=== PATIENT | male | born 1955 | race Caucasian/White ===

== ENCOUNTER → 2023-08-19 09:15 | Outpatient (REF) | payer OTHER, SELFPAY | LOC: WDC 09:15 | PROVIDERS: ATTENDING PHYSICIAN Specialist; FAMILY PHYSICIAN Family Medicine | DX: N64.4 Mastodynia (principal) | CPT/HCPCS: 76642; 77062; 77066 ==

== ENCOUNTER 2023-10-23 17:53 | Emergency (ER) | payer OTHER, SELFPAY ==
[2023-10-23 18:27] VITALS: BP 122/72
--- NOTE | 2023-10-23 18:43 | ED.GENMED ---
History of Present Illness
<Mariela Randall PA-C - Last Filed: 10/24/23 00:28>
General
Chief Complaint: Skin Surface Trauma
Source: patient
Exam Limitations: none
Time Seen by Provider: 10/23/23 18:43
Nursing documentation reviewed up to this point in time: agreed with
Travel History
Have you had any contact with someone who has COVID-19?: No
Do you have any symptoms of coronavirus? Fever > 100 degrees, chills, cough, shortness of breath, sore throat, loss of taste or smell, muscle aches, or headache?: No
History of Present Illness
History of Present Illness:
Patient is a 60-year-old male with history hypertension, hyperlipidemia, CVA presenting for evaluation of finger laceration. Patient states that he was cooking in the kitchen about an hour ago when a kitchen knife fell off the counter and he tried
to catch it with his right hand. The knife did slice his right fifth digit. Patient did attempt to stop bleeding at home with direct compression. Bleeding persisted so he came to the emergency department for further evaluation and management.
Patient denies any numbness or tingling in right finger or hand. Patient does take Plavix given stroke history.
Patient unsure when his last tetanus shot was.
Past History
<Mariela Randall PA-C - Last Filed: 10/24/23 00:28>
Past History
ED Past Medical History: CVA, HTN, Hypercholesterolemia and Other (Unbilical hernia)
ED Past Surgical History: Appendectomy and Urological (Prostate surgery)
Social History
Tobacco: Non-smoker
Alcohol: Occasional
Personal:
Living: with family
Review of Systems
<Mariela Randall PA-C - Last Filed: 10/24/23 00:28>
Review of Systems
Allergies reviewed?: Yes
All Other Systems: ROS reviewed and negative except as documented in HPI and ROS
Phy Exam
<Mariela Randall PA-C - Last Filed: 10/24/23 00:28>
Physical Exam
Physical Exam:
Vitals: Patient's vital signs are stable. Afebrile
General: Patient is well appearing, no acute distress
Skin: Approximately 2 cm V-shaped laceration of right fifth digit at medial aspect between PIP and DIP joint
Head: Normocephalic, atraumatic
Eyes: Sclera nonicteric. EOMs intact. No nystagmus.
Throat: Protecting airway
Neck: Normal ROM, no cervical spine tenderness, no meningismus
Cardiac: Regular rate and rhythm, no murmurs.
Pulm: Normal respiratory effort, no wheezes, rales, rhonchi heard on exam.
Abdomen: No abdominal tenderness.
Extremities: Approximately 2 cm linear laceration at medial aspect of fifth digit between PIP and DIP joint. No evidence of tendon involvement. Full strength against flexion and extension at PIP, DIP, MCP joint. Patient able to make a fist.
Strength 5 out of 5. Good distal pulses. Sensation fully intact
Neuro: AAOx3. CN II-XII intact. No focal neurologic deficits.
Psychiatric: Normal affect.
Course
<Mariela Randall PA-C - Last Filed: 10/24/23 00:28>
Orders/Labs/Results
Orders:
Orders
10/23/23 18:50
Acetaminophen [Tylenol] 650 mg PO NOW STA
Tetanus/Diphth/Acelpertussis [Adacel] 0.5 ml IM .ONCE ONE
Vital Signs
Initial and Last Documented VS:
Initial Vital Signs
Temp Pulse Resp BP Pulse Ox
97.8 F 67 18 122/72 98
10/23/23 18:27 10/23/23 18:27 10/23/23 18:27 10/23/23 18:27 10/23/23 18:27
Last Documented Vital Signs
Temp Pulse Resp BP Pulse Ox
97.8 F 67 18 122/72 98
10/23/23 18:27 10/23/23 18:27 10/23/23 18:27 10/23/23 18:27 10/23/23 18:27
<Alexander Menchaca DO - Last Filed: 10/23/23 19:55>
Orders/Labs/Results
Orders:
Orders
10/23/23 18:50
Acetaminophen [Tylenol] 650 mg PO NOW STA
Tetanus/Diphth/Acelpertussis [Adacel] 0.5 ml IM .ONCE ONE
Vital Signs
Initial and Last Documented VS:
Initial Vital Signs
Temp Pulse Resp BP Pulse Ox
97.8 F 67 18 122/72 98
10/23/23 18:27 10/23/23 18:27 10/23/23 18:27 10/23/23 18:27 10/23/23 18:27
Last Documented Vital Signs
Temp Pulse Resp BP Pulse Ox
97.8 F 67 18 122/72 98
10/23/23 18:27 10/23/23 18:27 10/23/23 18:27 10/23/23 18:27 10/23/23 18:27
Procedures
<VENKATA Quintana Last Filed: 10/24/23 00:28>
Laceration Closure
Right Fifth Finger:
Status of Wound: clean
Size of Wound in cm: 2
Description of Wound Edges: sharp
Preparation: cleaned with saline
Anesthesia: 1% Lidocaine and Digital-Regional
Revision/Debridement: routine- no revision
Wound exploration: explored to base- no FB
Type of Closure: interrupted sutures
Skin Closure Material: 5-0 nylon
Number of sutures: 4
<VENKATA Quintana Last Filed: 10/24/23 00:28>
MDM/Problems Addressed
Differential Diagnosis Includes:
Not limited to: Laceration
MDM/Problems Addressed:
68-year-old male with history of CVA on Plavix presenting for evaluation of right fifth finger laceration occurring approximately an hour ago. Bleeding unable to be controlled at home and came to emergency department for evaluation. Vital signs
stable. Exam as above. There is an approximately 2 cm V-shaped laceration on the right fifth digit at medial aspect between PIP and DIP joint. No evidence of tendon involvement. No evidence of foreign body. Sensation fully intact. Good distal
pulses. Will update tetanus, Tylenol for pain.
Digital block with 1% lidocaine performed. Laceration cleansed thoroughly with saline. Laceration closed with 5-0 nylon sutures (4) with great skin approximation. Bleeding well-controlled. Patient tolerated procedure very well. Place patient in
finger splint and dressing applied. Discussed wound care instructions. Sutures should be removed in 10 to 14 days. Return precautions discussed at length, including signs of infection. Stable for discharge.
Chronic conditions affecting care:
History of CVA on Plavix
Acute Exacerbation and/or Progression of Chronic Illness:
N/A
<Mariela Randall PA-C - Last Filed: 10/24/23 00:28>
*Pulse Oximetry
Patient hypoxic: no
*EKG
Interpreted by ED Provider?: NA
*Blower Insulator Interpretation
Rate: Blower Insulator- N/A
*Critical Care Note
Total Time (30-74mins, 75-104mins- exclusive of procedures): Not Applicable
ED Attending Note
<Mariela Randall PA-C - Last Filed: 10/24/23 00:28>
-
Portions of this chart may have been created with voice recognition software.� Occasional wrong word or��sound alike� substitutions may have occurred due to the inherent limitations of voice recognition software.
<Alexander Menchaca DO - Last Filed: 10/23/23 19:55>
ED Attending Note
Patient seen and examined by attending physician: Yes
I performed a history and physical exam of patient and discussed management with resident, I reviewed resident's note and agree with documented findings and plan of care.: Yes
ED Attending Note:
I have reviewed and agree with history and treatment plan by Mariela Randall. My exam revealed 68-year-old male with right pinkie finger, bleeding controlled. Tetanus updated.
Discharge Plan
Departure
Patient Disposition: Home (Routine Discharge)
Date of Disposition: 10/23/23
Time of Disposition: 19:57
Patient with high blood pressure during this ER visit?: No
Condition: Good
Discharge Problem:
Laceration of finger of right hand
Instructions: Laceration Repair With Stitches ED, Wound Care ED
Prescriptions:
No Action
aspirin 325 MG tablet
325 mg PO DAILY
potassium chloride [Klor-Con 10] 10 MEQ tablet extended release
20 meq PO DAILY
prednisolone acetate 1 % drops,suspension
1 drp LEFT EYE MOWEFR
fluticasone propionate 1 SPRAY spray,suspension
2 spray intranasal DAILY
potassium chloride 10 MEQ tablet,ER particles/crystals
10 meq PO HS
amlodipine-benazepril 10-40 mg Capsule
1 cap PO DAILY
acetaminophen [Tylenol] 325 MG capsule
650 mg PO Q4HPRN PRN (Reason: mild pain)
spironolactone 25 mg Tablet
25 mg PO DAILY
atorvastatin 80 mg Tablet
80 mg PO QPM 30 Days Qty: 30 0RF
clopidogrel 75 mg Tablet
75 mg PO DAILY 19 Days Qty: 19 0RF
Referrals:
Karolina Warner DO [Family Provider] - Follow up in 10 days
Activity Restrictions/Additional Instructions:
RETURN TO THE EMERGENCY DEPARTMENT WITH ANY FEVERS, CHILLS, NUMBNESS/TINGLING IN AFFECTED FINGER, OR ANY SIGNS OF INFECTION
-As discussed�you should have stitches removed in 10 to 14 days. This can be done at your family doctor, urgent care or emergency department. You should keep wound clean and dry. You should continue to wash wound gently with soap and water, keep
covered. You should keep finger in splint to limit movement.
-As discussed that she should monitor for signs of infection including significant pain in finger, worsening redness, swelling in finger, red streaking away from wound, pus draining from wound, fevers, or any other concerns
Interventions
Interventions:
*Risk Screen - Suicide Last Done: 10/23/23 18:27
*General Assessment Last Done: 10/23/23 19:04
*Neglect/Abuse Screening Last Done: 10/23/23 18:27
ED- Fall Risk Assessment Last Done: 10/23/23 19:04
*ED COVID-19 Vaccine History Last Done: 10/23/23 18:27
*Nursing Disposition Last Done: 10/23/23 20:15
ED-Skin Assessment Last Done: 10/23/23 18:41
Discharge Date and Time
Discharge Date/Time: 10/23/23 20:16
Print Language: MALAWIAN
[2023-10-23] MEDS: TYLENOL 650 MG PO (20:09)
[2023-10-23] MEDS: ADACEL 0.5 ML IM (20:10)
== END 2023-10-23 20:16 | disposition home or self-care (01) ==
LOC: EMR 17:53
PROVIDERS: EMERGENCY PHYSICIAN Emergency Medicine; FAMILY PHYSICIAN Family Medicine
DX: S61.216A Laceration without foreign body of right little finger without damage to nail, initial encounter (principal); W26.0XXA Contact with knife, initial encounter; I10 Essential (primary) hypertension; E78.00 Pure hypercholesterolemia, unspecified; Z23 Encounter for immunization; Z79.02 Long term (current) use of antithrombotics/antiplatelets; Z86.73 Personal history of transient ischemic attack (TIA), and cerebral infarction without residual deficits; Z90.49 Acquired absence of other specified parts of digestive tract
CPT/HCPCS: 99282; 12001; 90471; 90715

== ENCOUNTER → 2024-01-12 07:45 | Outpatient (REF) | payer OTHER, SELFPAY | LOC: DHCBC/DCA 07:45 | PROVIDERS: ATTENDING PHYSICIAN Nuclear Medicine Nuclear Cardiology; FAMILY PHYSICIAN Family Medicine | DX: I10 Essential (primary) hypertension (principal); I63.89 Other cerebral infarction; I45.10 Unspecified right bundle-branch block; R94.31 Abnormal electrocardiogram [ECG] [EKG]; R06.09 Other forms of dyspnea | CPT/HCPCS: 78452; 93017; A9500 ==

== ENCOUNTER → 2024-01-23 08:47 | Outpatient (REF) | payer OTHER, SELFPAY ==
--- NOTE | 2024-01-23 11:09 | PTCARENOTE ---
in department for echo with agitated saline contrast study. IV started RAC #[id number] 1st attempt. images obtained with agitated saline contrast under direction echosonographer. site dcd at completion of test.
== END ==
LOC: RCS 08:47
PROVIDERS: ATTENDING PHYSICIAN Nuclear Medicine Nuclear Cardiology; FAMILY PHYSICIAN Family Medicine
DX: I10 Essential (primary) hypertension (principal); I63.89 Other cerebral infarction; I45.10 Unspecified right bundle-branch block; R06.09 Other forms of dyspnea
CPT/HCPCS: 93306

== ENCOUNTER → 2024-08-23 10:51 | Outpatient (REF) | payer OTHER, SELFPAY ==
[2024-08-23 13:10] LABS: VerifyNow Aspirin 407 ARU
== END ==
LOC: REG 10:51
PROVIDERS: ATTENDING PHYSICIAN Nurse Practitioner Adult Health
DX: I63.9 Cerebral infarction, unspecified (principal)
CPT/HCPCS: 36415; 85576